=== PATIENT | female | born 1965 | race Caucasian/White ===

== ENCOUNTER 2025-06-07 13:58 | Emergency (ER) | payer BC ==
[2025-06-07] MEDS ORDERED: Dexamethasone 10 MG/ML VIAL ONE (15:34)
[2025-06-07] MEDS ORDERED: Albuterol 2.5 MG (3 mL) NEB ONE ×2 (15:34→17:12)
[2025-06-07] MEDS ORDERED: Magnesium 2 GM/50 ML BAG (IN WATER) ONE (15:37)
[2025-06-07] MEDS ORDERED: Acetaminophen 500 MG TAB ONE (15:45)
[2025-06-07 16:06] LABS: #Basophils 0.03 10x3/uL (0.0-0.2); #Eosinophils 0.31 10x3/uL (0.0-0.7); #Monocytes 0.85 10x3/uL (0.11-0.59); #Neutrophils 7.42 10x3/uL (1.40-6.50); %Basophils 0.3 % (0.0-1.0); %Eosinophils 3.1 % (0.0-10.0); %Lymphocytes 13.7 % (21.0-51.0); %Monocytes 8.5 % (0.0-10.0); %Neutrophils 74.0 % (42.0-75.0); Hematocrit 40.7 % (36.0-47.0); Hemoglobin 13.3 g/dL (12.0-16.0); Mean Corpuscular Hemoglobin 29.4 pg (27.0-31.0); Mean Corpuscular Volume 89.8 fL (78.0-98.0); Platelet Count 235 10x3/uL (130-400); Red Blood Cell (RBC) Count 4.53 mill/uL (4.20-5.40); White Blood Cell (WBC) Count 10.02 10x3/uL (4.8-10.8)
[2025-06-07 16:26] LABS: ALT (SGPT) 31 U/L (Less than 34); AST (SGOT) 25 U/L (11-34); Albumin 4.5 g/dL (3.1-4.5); Alkaline Phosphatase 94 U/L (40-110); Anion Gap 16 mmol/L (10-20); BUN (Urea Nitrogen) 13 mg/dL (9.8-20.1); Bilirubin, Total 0.5 mg/dL (0.3-1.2); Calc. Creatinine Clearance 0 mL/min (70-130); Calcium 10.2 mg/dL (7.8-10.44); Carbon Dioxide 26 mmol/L (22-29); Chloride 103 mmol/L (98-107); Globulin 2.4 g/dL (2.4-3.5); Glucose 100 mg/dL (70-105); Potassium 4.5 mmol/L (3.5-5.1); Sodium 140 mmol/L (136-145)
== END 2025-06-07 18:09 | disposition home or self-care (01) ==
LOC: ERS 13:58
DX: R06.2 Wheezing (principal); R05.9 Cough, unspecified; I10 Essential (primary) hypertension; Z79.51 Long term (current) use of inhaled steroids
CPT/HCPCS: 71046; 80053; 83880; 84484; 85025; 87081; 87428; 87430; 93005; 94640; 96365; 96366; 96375; J1100; J3475; J7611